=== PATIENT | female | born 1955 | race Caucasian/White ===

== ENCOUNTER 2020-01-01 11:59 | Emergency (ER) | payer MEDICARE, SELFPAY ==
[2020-01-01 12:06] VITALS: BP 180/122; PULSE 85; RESP 26; TEMP 36.7; O2SAT 96; BMI 43.2
[2020-01-01 12:28] VITALS: O2SAT 94
--- NOTE | 2020-01-01 12:30 | ECG_ITS ---
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: : 1955 Requested By: Lakesha Regan Order Number: [id number] Shan MD: ERROL DOZIER Measurements Intervals [place] Rate: 72 P: 55 IA: 191 QRS: 52 QRSD: 81 T: -44 QT: 382 QTc: 419 Interpretive Statements SINUS RHYTHM WITH SINUS ARRHYTHMIA LOW QRS VOLTAGE IN PRECORDIAL LEADS [QRS DEFLECTION < 1.0 mV IN CHEST LEADS] SEPTAL MYOCARDIAL INFARCTION , OF INDETERMINATE AGE [40+ ms Q WAVE IN V1/V2] MODERATE T-WAVE ABNORMALITY, CONSIDER LATERAL ISCHEMIA [-0.1+ mV T WAVE IN I/aVL/V5/V6] MODERATE T-WAVE ABNORMALITY, CONSIDER INFERIOR ISCHEMIA [-0.1+ mV T WAVE IN II/aVF] No previous ECG available for comparison Electronically Signed On 01-01-2020 21:04:10 CDT by ERROL DOZIER [id number]
--- NOTE | 2020-01-01 12:30 | W.ED.COVID ---
HPI - COVID General: Chief Complaint: COVID symptoms Stated Complaint: covid Symtoms Time Seen by Provider: 01/01/20 12:15 Triage information: Has fever, cough or shortness of breath. Exposure to COVID + person last 14 days History of Present Illness: HPI Narrative: 64-year-old female patient presents to the emergency department with Covid symptoms. Reports illness symptoms x4 to 5 days, reports experienced nausea vomiting, productive cough, low-grade temperature (99.8); states has cared for her father who tested positive for Covid 3 weeks ago. She reports her father is currently on the ventilator at [facility] in [place]; states not sure if her shortness of breath is related to her anxiety due to her ill father or if she is experiencing something different. She has history of hypertension, hypothyroidism. Primary care provider is Dr. Mcdonald. States able to eat and drink this morning, has not experienced vomiting today. Remains slightly nauseated. MD complaint: has COVID symptoms Prior covid testing: no COVID 19 common symptoms: positive fever(s), chills, cough, productive cough, dyspnea, fatigue, body aches and nasal congestion; negative non-productive cough, headache(s), throat pain, nausea or vomiting COVID 19 other sytmptoms: negative chest pain Onset (ago): day(s) (4-5) Severity: moderate Pertinent comorbid conditions: hypertension Treatment prior to arrival: none COVID Results: SARS-CoV-2 Antigen (Rapid) Negative (Negative) 01/01/20 13:07 01/01/20 Review of Systems General: Reports: 10 or more systems reviewed and unremarkable except in HPI and below Const: Reports: fever(s), chills, body aches, change in appetite, fatigue and malaise Eyes: Denies: blurry vision or eye redness ENMT: Reports: nasal discharge, nasal congestion and post nasal drip; Denies: throat pain, uvular edema, oral sores, dental pain or disequilibrium Card: Reports: dyspnea on exertion; Denies: chest pain, palpitations, irregular heart rhythm, swelling of feet/ankles or orthopnea Resp: Reports: dyspnea, productive cough and chest congestion; Denies: non-productive cough, wheezing or hemoptysis GI: Denies: abdominal pain, nausea or vomiting : Denies: difficulty voiding or dysuria Musc: Denies: neck pain, back pain, joint pain or joint warmth Skin/Breast: Denies: rash or pruritus Neuro: Denies: headache(s), weakness in extremities or behavioral changes Psych: Denies: anxiety or depression Mike/Lymph: Denies: easy bruising PFSH ED PFSH: Social History Smoking and tobacco status: never smoked Alcohol intake: never Physical Exam Const: COMMON NORMALS: no acute distress, patient oriented x3, healthy appearing and alert GENERAL APPEARANCE: cooperative, comfortable and well hydrated HENMT: COMMON NORMALS: normocephalic, Normal external nose present and moist oral mucous membranes HEAD & SCALP: normocephalic NOSE: Normal external nose present THROAT: no uvular edema Eye: COMMON NORMALS: Equal, round and reactive pupils present and EOMs intact bilaterally GENERAL EYE: appearance normal, both eyes and all related structures PUPIL: Yes Equal, round and reactive pupils present Neck/C-Spine: COMMON NORMALS: full ROM and no lymphadenopathy GENERAL: Yes normal visual inspection and Yes trachea midline CERVICAL SPINE: Yes cervical ROM normal Lymph: LYMPHATIC: no lymphadenopathy noted Chest: COMMONS NORMALS: normal inspection of the chest Resp: COMMON NORMALS: normal respiratory effort, No use of accessory muscles and clear to auscultation bilaterally EFFORT & INSPECTION: Yes able to speak in complete sentences and No paradoxical thoraco-abdominal movements AUSCULTATION: clear to auscultation bilaterally and diminished lung sounds bilateral in the lower lung hester Cardio: COMMON NORMALS: regular rhythm, S1 normal heart sound present, S2 normal heart sound present and Peripheral pulses 2+ throughout RHYTHM: regular rhythm HEART SOUNDS: S1 normal heart sound present and S2 normal heart sound present PERIPHERAL PULSES: Peripheral pulses 2+ throughout GI: COMMON NORMALS: Soft to palpation and non-tender INSPECTION: Yes normal to inspection PALPATION: Yes Soft to palpation : COMMON NORMALS: Yes no CVA tenderness BLADDER/KIDNEY EXAM: Yes no CVA tenderness Back/Pelvis: COMMON NORMALS: no CVA tenderness and thoracic and lumbar spine normal to inspection Extremity: COMMON NORMALS: normal to inspection and capillary refill normal Neuro: COMMON NORMALS: patient oriented x3 and no focal motor deficits SENSORIUM/ORIENTATION: Yes alert Psych: COMMON NORMALS: mental status grossly normal, Normal thought process present, cooperative, normal affect, speech normal, activity/motor behavior normal, denies hallucinations, denies homicidal ideation and denies suicidal ideation ATTITUDE: Yes calm ACTIVITY/MOTOR BEHAVIOR: Yes appropriate eye contact SPEECH: Yes normal speech MOOD & AFFECT: Yes Other affect and mood findings present (tearful during exam ) THOUGHT PROCESS: Normal thought process present THOUGHT CONTENT: Yes Normal thought content present ATTENTION/CONCENTRATION: Yes attention grossly intact INSIGHT: Good insight present (Psych) JUDGEMENT: Good judgement present (Psych) Skin: COMMON NORMALS: no rashes or lesions noted and turgor normal GENERAL SKIN EXAM: no rashes or lesions noted and turgor normal Course ED course: 64-year-old female patient presents to the emergency department with Covid symptoms. Her father recently diagnosed with Covid and has been his primary gang boss for 3 weeks. She presents with Covid symptoms x5 days. Initial Covid rapid screen negative; CT scan revealed no evidence of pulmonary emboli but appreciation of small round groundglass opacities with peripheral predominance suggestive of Covid resulted. D-dimer slightly elevated, lactic acid 1.6, ferritin 64, serial 2-hour troponin with delta -1. O2 saturation during the ED continuous monitoring. Oxygen saturation dropped to 87%, she was placed on 2 L nasal cannula oxygen saturation rebounding to 96%. Patient reports she is feeling hungry and wishes to go home. States she does not want to stay in the hospital. She will be sent home with portable oxygen monitoring device. Agrees to return to the emergency department if she develops increased weakness, vomiting with nausea despite use of Zofran, increased shortness of breath or other concerning symptoms. I discussed Covid process with her as well as serology, radiology results completed here in the ED. Questions were answered, expectations discussed. She agrees to follow-up with her primary care in 2 to 3 days for close follow-up. Vital Signs: Vital signs: Vital Signs Temperature 98.1 F 01/01/20 12:06 Pulse Rate 83 01/01/20 16:44 Respiratory Rate 18 01/01/20 16:44 Blood Pressure 169/83 01/01/20 16:44 Pulse Oximetry 95 01/01/20 16:44 MDM - COVID Lab Data Result diagrams: 01/01/20 12:52 01/01/20 12:52 Labs: Lab Results 01/01/20 01/01/20 01/01/20 Range/Units 12:52 12:52 12:52 WBC 6.0 (4.0-10.0) 10^3/uL RBC 5.35 H (4.1-5.3) 10^6/uL Hgb 12.2 (11.5-15.3) g/dL Hct 39.9 (37.0-47.0) % MCV 74.6 L (81-99) fL MCH 22.8 L (28.0-34.0) pg MCHC 30.6 (30.0-36.0) g/dL RDW 15.0 (12.1-15.1) % Plt Count 233 (130-400) 10^3/cmm MPV 10.8 H (7.4-10.4) fL Neut % (Auto) 76.9 % Lymph % (Auto) 12.1 % Gregg % (Auto) 8.8 % Eos % (Auto) 1.3 % Baso % (Auto) 0.2 % Neut # (Auto) 4.62 (1.8-7.7) 10^3/uL Lymph # (Auto) 0.7 L (0.8-4.8) 10^3/uL Gregg # (Auto) 0.5 (0.2-0.9) 10^3/uL Eos # (Auto) 0.1 (0.0-0.8) 10^3/uL Baso # (Auto) 0.0 (0.0-0.1) 10^3/uL Nucleated RBC % (auto) 0 % Nucleated RBCs # 0.0 /100WBC D-Dimer 0.91 H (0-0.59) ug/mIFEU Sodium 134 L (136-145) mmol/L Potassium 3.3 L (3.5-5.1) mmol/L Chloride 94 L (98-107) mmol/L Carbon Dioxide 23 (22-29) mmol/L Anion Gap 20.3 H (5-19) BUN 11 (8-23) mg/dL Creatinine 1.0 H (0.5-0.9) mg/dL GFR Calculation 56.0 L (90-130) mL/min Glucose 136 H (65-115) mg/dL Calculated Osmolality 279 L (285-295) mOsm/kg Lactate (0.5-2.2) mmol/L Calcium 8.5 (8.5-10.5) mg/dL Ferritin 64 (15-150) ng/mL Total Bilirubin 0.4 (0.15-1.2) mg/dL AST 18 (0-32) U/L ALT 10 (0-33) U/L Alkaline Phosphatase 97 (35-105) IU/L Troponin T Baseline (0-10) ng/L Troponin T 120 Minute (0-10) ng/L Delta Troponin T (0-10) ABS# Total Protein 7.3 (6.6-8.7) g/dL Albumin 4.0 (3.5-5.2) g/dL Globulin 3.3 (1.3-4.6) g/dL Influenza Type A Ag (Negative) Influenza Type B Ag (Negative) SARS-CoV-2 Ag (Rapid) (Negative) 01/01/20 01/01/20 01/01/20 Range/Units 12:52 12:52 13:07 WBC (4.0-10.0) 10^3/uL RBC (4.1-5.3) 10^6/uL Hgb (11.5-15.3) g/dL Hct (37.0-47.0) % MCV (81-99) fL MCH (28.0-34.0) pg MCHC (30.0-36.0) g/dL RDW (12.1-15.1) % Plt Count (130-400) 10^3/cmm MPV (7.4-10.4) fL Neut % (Auto) % Lymph % (Auto) % Gregg % (Auto) % Eos % (Auto) % Baso % (Auto) % Neut # (Auto) (1.8-7.7) 10^3/uL Lymph # (Auto) (0.8-4.8) 10^3/uL Gregg # (Auto) (0.2-0.9) 10^3/uL Eos # (Auto) (0.0-0.8) 10^3/uL Baso # (Auto) (0.0-0.1) 10^3/uL Nucleated RBC % (auto) % Nucleated RBCs # /100WBC D-Dimer (0-0.59) ug/mIFEU Sodium (136-145) mmol/L Potassium (3.5-5.1) mmol/L Chloride (98-107) mmol/L Carbon Dioxide (22-29) mmol/L Anion Gap (5-19) BUN (8-23) mg/dL Creatinine (0.5-0.9) mg/dL GFR Calculation (90-130) mL/min Glucose (65-115) mg/dL Calculated Osmolality (285-295) mOsm/kg Lactate (0.5-2.2) mmol/L Calcium (8.5-10.5) mg/dL Ferritin (15-150) ng/mL Total Bilirubin (0.15-1.2) mg/dL AST (0-32) U/L ALT (0-33) U/L Alkaline Phosphatase (35-105) IU/L Troponin T Baseline 7 (0-10) ng/L Troponin T 120 Minute (0-10) ng/L Delta Troponin T (0-10) ABS# Total Protein (6.6-8.7) g/dL Albumin (3.5-5.2) g/dL Globulin (1.3-4.6) g/dL Influenza Type A Ag Negative (Negative) Influenza Type B Ag Negative (Negative) SARS-CoV-2 Ag (Rapid) Negative (Negative) 01/01/20 01/01/20 Range/Units 14:00 14:00 WBC (4.0-10.0) 10^3/uL RBC (4.1-5.3) 10^6/uL Hgb (11.5-15.3) g/dL Hct (37.0-47.0) % MCV (81-99) fL MCH (28.0-34.0) pg MCHC (30.0-36.0) g/dL RDW (12.1-15.1) % Plt Count (130-400) 10^3/cmm MPV (7.4-10.4) fL Neut % (Auto) % Lymph % (Auto) % Gregg % (Auto) % Eos % (Auto) % Baso % (Auto) % Neut # (Auto) (1.8-7.7) 10^3/uL Lymph # (Auto) (0.8-4.8) 10^3/uL Gregg # (Auto) (0.2-0.9) 10^3/uL Eos # (Auto) (0.0-0.8) 10^3/uL Baso # (Auto) (0.0-0.1) 10^3/uL Nucleated RBC % (auto) % Nucleated RBCs # /100WBC D-Dimer (0-0.59) ug/mIFEU Sodium (136-145) mmol/L Potassium (3.5-5.1) mmol/L Chloride (98-107) mmol/L Carbon Dioxide (22-29) mmol/L Anion Gap (5-19) BUN (8-23) mg/dL Creatinine (0.5-0.9) mg/dL GFR Calculation (90-130) mL/min Glucose (65-115) mg/dL Calculated Osmolality (285-295) mOsm/kg Lactate 1.6 (0.5-2.2) mmol/L Calcium (8.5-10.5) mg/dL Ferritin (15-150) ng/mL Total Bilirubin (0.15-1.2) mg/dL AST (0-32) U/L ALT (0-33) U/L Alkaline Phosphatase (35-105) IU/L Troponin T Baseline (0-10) ng/L Troponin T 120 Minute 6.00 (0-10) ng/L Delta Troponin T -1.00 L (0-10) ABS# Total Protein (6.6-8.7) g/dL Albumin (3.5-5.2) g/dL Globulin (1.3-4.6) g/dL Influenza Type A Ag (Negative) Influenza Type B Ag (Negative) SARS-CoV-2 Ag (Rapid) (Negative) COVID Results: SARS-CoV-2 Antigen (Rapid) Negative (Negative) 01/01/20 13:07 01/01/20 Imaging Data CXR: Radiologist's impression: [address] [address] XRay Report Signed Patient: Sophie Mckeon #: [id number] : 7Acct#:[id number] Age/Sex: 64 / FADM Date: 01/01/20 Loc: ERRoom/Bed: Attending Dr: Ordering Provider/Ordering MD: Lakesha Clark Date of Service: 01/01/20 Procedure(s): XR chest 1V portable [id number] Accession Number(s): [id number] Report Number: [id number] PROCEDURE INFORMATION: Exam: XR Chest, 1 View Exam date and time: 01/01/2020 12:56 PM Age: 64 years old Clinical indication: Shortness of breath; Patient HX: Covid precautions; Additional info: Syncope TECHNIQUE: Imaging protocol: XR of the chest Views: 1 view. COMPARISON: No relevant prior studies available. FINDINGS: Lungs: Unremarkable. No consolidation. Pleural space: Unremarkable. No pleural effusion. No pneumothorax. Heart/Mediastinum: Unremarkable. No cardiomegaly. Bones/joints: Unremarkable. XR/XR chest 1V portable [id number] IMPRESSION: No acute findings. Dictated By:Hung Ortega Signed By:Alicia Ortega Date/Time:01/01/201403 DD/ 02 CT Chest: Radiologist's impression: [place] [address] CT Scan Report Signed Patient: Sophie Mckeon Unit #: [id number] : 1955 Age/Sex: 64 / F ADM Date: 01/01/20 Loc: ER Room/Bed: Attending Dr: Ordering Provider/Ordering MD: Lakesha Clark Date of Service: 01/01/20 Procedure(s): CT angio chest PE protcl [id number] Accession Number(s): [id number] Report Number: [id number] PROCEDURE INFORMATION: Exam: CT Angiography Chest With Contrast Exam date and time: 01/01/2020 2:22 PM Age: 64 years old Clinical indication: Abnormal findings; Abnormal diagnostic tests; Elevated d-dimer; Additional info: ? Covid - elevated d-dimer TECHNIQUE: Imaging protocol: Computed tomographic angiography of the chest with intravenous contrast. 3D rendering (Not supervised by radiologist): MIP and/or 3D reconstructed images were created by the technologist. Radiation optimization: All CT scans at this facility use at least one of these dose optimization techniques: automated exposure control; mA and/or kV adjustment per patient size (includes targeted exams where dose is matched to clinical indication); or iterative reconstruction. Contrast material: OMNI 350; Contrast volume: 80 ml; Contrast route: INTRAVENOUS (IV); COMPARISON: CR XR chest 1V portable [id number] 01/01/2020 12:41 PM RADIATION DOSE METRICS: Total DLP (mGy-cm): 554.78 FINDINGS: Pulmonary arteries: There is no evidence of pulmonary artery emboli. Aorta: There is no evidence of thoracic aortic aneurysm or dissection. Lungs: There are multifocal small round ground-glass opacities within all segments. There is peripheral predominance. Pleural space: Unremarkable. No pneumothorax. No pleural effusion. Heart: Unremarkable. No cardiomegaly. No pericardial effusion. Mediastinal space: There is a small hiatal hernia Lymph nodes: Unremarkable. No enlarged lymph nodes. Bones/joints: There are degenerative changes of the spine. Soft tis. sues: Unremarkable. CT/CT angio chest PE protcl [id number] IMPRESSION: 1. No evidence of pulmonary artery emboli. 2. Multifocal small round ground-glass opacities with peripheral predominance.Commonly reported imaging features of COVID-19 pneumonia are present. Other processes such as influenza pneumonia and organizing pneumonia, as can be seen with drug toxicity and connective tissue disease, can cause a similar imaging pattern. (Reference: Luis Fernando) REFERENCES: Luis Fernando S, et al., Radiological Society of [place] Expert Consensus Statement on Reporting Chest CT Findings Related to COVID-19. Endorsed by the Society of Thoracic Radiology, the [place] [employer], and RSNA. Published May 28, 2019. Radiation Dose CTDIVOL = (mGy): DLP = 554.78 (mGy-cm) Dictated By: González Tracey MD Signed By: González Tracey MD Signed Date/Time: 01/01/201454 DD/ 53 EKG Data EKG 1: EKG interpretation date: 01/01/20 EKG interpretation time: 13:02 Computer generated interpretation: Sinus rhythm with sinus arrhythmia, septal myocardial infarction of indeterminate age EKG 2: EKG interpretation date: 01/01/20 EKG interpretation time: 14:50 Prior EKG tracings: available for review Computer generated interpretation: Sinus rhythm with sinus arrhythmia, possible right ventricular conduction delay, septal myocardial infarction, probably old, abnormal ECG Discharge Plan Discharge Patient Disposition: Home Clinical Impression: COVID-19, Viral bronchitis, Anxiety Condition: Stable Prescriptions: New dexamethasone 6 mg tablet 6 mg PO DAILY Qty: 10 RF: 0 Adult Aspirin Regimen 81 mg tablet,delayed release (DR/EC) 81 mg PO DAILY Qty: 10 RF: 0 Pepcid 20 mg tablet 20 mg PO DAILY Qty: 10 RF: 0 Ventolin HFA 90 mcg/actuation HFA aerosol inhaler 2 puff INHALATION Q4H PRN (Reason: shortness of breath or wheezing) Qty: 18 RF: 0 Zofran 4 mg tablet 4 mg PO 6XD PRN (Reason: nausea and vomiting) 4 Days Qty: 10 RF: 0 No Action levothyroxine 137 mcg capsule 137 mcg PO DAILY RF: 0 sulfamethoxazole-trimethoprim [Bactrim DS] 800-160 mg tablet 1 tab PO BID Qty: 14 RF: 0 metoprolol tartrate 100 mg tablet 100 mg PO DAILY 90 Days Qty: 90 RF: 3 Discharge Orders: Discharge Order (Routine); Ordered 01/01/20 Ordered By: Lakesha Clark Other Ambulatory Orders: DME: Oxygen (Order) Location: None Selected Ordered By: Lakesha Clark Referrals: Breonna Mcdonald MD [Primary Care Provider] - Discharge Diet: Usual diet Discharge Activity: Limit activity as instructed Patient Instructions: Stress (ED), Acute Bronchitis (ED), Viral Syndrome (ED) Activity Restrictions/Additional Instructions: Return to the emergency department if you develop inability to catch your breath, coughing up blood, oxygen level drops below 90%, lightheadedness or feeling of passing out Return to the emergency department if you develop chest pain You will need to rest for the next several days. Follow-up with your primary care provider in 2 to 3 days to monitor your oxygen level. Push fluids, may take Tylenol as needed for pain Take Pepcid aspirin dexamethasone daily for 10 days Albuterol has been prescribed to help with shortness of breath and cough symptoms, albuterol can make you feel jittery, may utilize 1 puff if side effects are bothersome Wear oxygen at night, may take oxygen off during the day but ensure you are monitoring your oxygen level in the oxygen saturations stays above 93%. Discharge Date/Time: 01/01/20 16:48 Coding Level of Care Code ED Baggage Agent Supervisor for Chg Fwd Exam Comprehensive
[2020-01-01 12:58] VITALS: RESP 20; O2SAT 94
[2020-01-01 13:03] LABS: Basophils % 0.2 %; Eosinophils # 0.1 10^3/uL (0.0-0.8); Eosinophils % 1.3 %; Hematocrit 39.9 % (37.0-47.0); Hemoglobin 12.2 g/dL (11.5-15.3); Lymphocytes # 0.7 10^3/uL (0.8-4.8); Lymphocytes % 12.1 %; Mean Corpuscular HGB Conc 30.6 g/dL (30.0-36.0); Mean Corpuscular Hemoglobin 22.8 pg (28.0-34.0); Mean Corpuscular Volume 74.6 fL (81-99); Mean Platelet Volume 10.8 fL (7.4-10.4); Monocytes # 0.5 10^3/uL (0.2-0.9); Monocytes % 8.8 %; Neutrophils # 4.62 10^3/uL (1.8-7.7); Neutrophils % 76.9 %; Nucleated Red Blood Cells % 0 %; Platelet Count 233 10^3/cmm (130-400); Red Blood Count 5.35 10^6/uL (4.1-5.3)
[2020-01-01 13:16] LABS: D Dimer 0.91 ug/mIFEU (0-0.59)
[2020-01-01 13:22] LABS: Alanine Aminotransferase 10 U/L (0-33); Alkaline Phosphatase 97 IU/L (35-105); Anion Gap 20.3 (5-19); Aspartate Amino Transferase 18 U/L (0-32); Blood Urea Nitrogen 11 mg/dL (8-23); Calcium 8.5 mg/dL (8.5-10.5); Carbon Dioxide 23 mmol/L (22-29); Chloride 94 mmol/L (98-107); Globulin 3.3 g/dL (1.3-4.6); Glucose 136 mg/dL (65-115); Osmolality Calculated 279 mOsm/kg (285-295); Potassium 3.3 mmol/L (3.5-5.1); Sodium 134 mmol/L (136-145); Total Bilirubin 0.4 mg/dL (0.15-1.2); Total Protein 7.3 g/dL (6.6-8.7)
[2020-01-01 13:23] LABS: Troponin(5th) Baseline 7 ng/L (0-10)
[2020-01-01 13:31] LABS: Influenza A by IFA Negative (Negative); Influenza B by IFA Negative (Negative)
--- NOTE | 2020-01-01 13:47 | CTR_ITS ---
PROCEDURE INFORMATION: Exam: CT Angiography Chest With Contrast Exam date and time: 01/01/2020 2:22 PM Age: 64 years old Clinical indication: Abnormal findings; Abnormal diagnostic tests; Elevated d-dimer; Additional info: ? Covid - elevated d-dimer TECHNIQUE: Imaging protocol: Computed tomographic angiography of the chest with intravenous contrast. 3D rendering (Not supervised by radiologist): MIP and/or 3D reconstructed images were created by the technologist. Radiation optimization: All CT scans at this facility use at least one of these dose optimization techniques: automated exposure control; mA and/or kV adjustment per patient size (includes targeted exams where dose is matched to clinical indication); or iterative reconstruction. Contrast material: OMNI 350; Contrast volume: 80 ml; Contrast route: INTRAVENOUS (IV); COMPARISON: CR XR chest 1V portable [id number] 01/01/2020 12:41 PM RADIATION DOSE METRICS: Total DLP (mGy-cm): 554.78 FINDINGS: Pulmonary arteries: There is no evidence of pulmonary artery emboli. Aorta: There is no evidence of thoracic aortic aneurysm or dissection. Lungs: There are multifocal small round ground-glass opacities within all segments. There is peripheral predominance. Pleural space: Unremarkable. No pneumothorax. No pleural effusion. Heart: Unremarkable. No cardiomegaly. No pericardial effusion. Mediastinal space: There is a small hiatal hernia Lymph nodes: Unremarkable. No enlarged lymph nodes. Bones/joints: There are degenerative changes of the spine. Soft tis. sues: Unremarkable. CT/CT angio chest PE protcl [id number] IMPRESSION: 1. No evidence of pulmonary artery emboli. 2. Multifocal small round ground-glass opacities with peripheral predominance.Commonly reported imaging features of COVID-19 pneumonia are present. Other processes such as influenza pneumonia and organizing pneumonia, as can be seen with drug toxicity and connective tissue disease, can cause a similar imaging pattern. (Reference: Luis Fernando) REFERENCES: Luis Fernando Rhodes, et al., Radiological Society of [place] Expert Consensus Statement on Reporting Chest CT Findings Related to COVID-19. Endorsed by the Society of Thoracic Radiology, the [place] [employer], and RSNA. Published May 28, 2019. Radiation Dose CTDIVOL = (mGy): DLP = 554.78 (mGy-cm)
[2020-01-01 13:49] LABS: SARS Covid-2 Antigen Negative (Negative)
[2020-01-01 13:52] VITALS: BP 134/89
[2020-01-01] MEDS: LORazepam 0.5 mg Tablet 0.25 MG PO (13:57)
[2020-01-01] MEDS: ondansetron 2 mg/ML SDV 2 mL 4 MG IVP (13:57)
[2020-01-01 14:27] LABS: Lactate (Lactic Acid level) 1.6 mmol/L (0.5-2.2)
--- NOTE | 2020-01-01 14:30 | ECG_ITS ---
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: : 1955 Requested By: Lakesha Regan Order Number: [id number] Reading MD: ERROL DOZIER Measurements Intervals [place] Rate: 72 P: 8 ND: 130 QRS: 45 QRSD: 87 T: -58 QT: 346 QTc: 381 Interpretive Statements SINUS RHYTHM WITH SINUS ARRHYTHMIA LOW QRS VOLTAGE IN PRECORDIAL LEADS [QRS DEFLECTION < 1.0 mV IN CHEST LEADS] POSSIBLE RIGHT VENTRICULAR CONDUCTION DELAY [RSR (QR) IN V1/V2] SEPTAL MYOCARDIAL INFARCTION , PROBABLY OLD [40+ ms Q WAVE IN V1/V2] Compared to ECG 01/01/2020 13:01:47 T-wave abnormality no longer present Possible ischemia no longer present Myocardial infarct finding still present Electronically Signed On 01-01-2020 21:05:43 CDT by ERROL DOZIER [email or web address]/[id number] f
[2020-01-01 14:31] LABS: Ferritin 64 ng/mL (15-150)
[2020-01-01] MEDS: iohexol 350 mg/mL 100 mL Btl IV (14:46)
[2020-01-01 15:51] VITALS: O2SAT 88; O2SAT 96
--- NOTE | 2020-01-01 16:03 | DCPLANNER ---
manager information was asked to arrange for home O2 for patient. manager information faxed order to [facility], for oxygen. manager information filled out Patient Choice Letter, patient choose [facility] for her oxygen needs. manager information signed the Patient Choice letter for patient, due to patient having covid.
[2020-01-01 16:44] VITALS: BP 169/83; PULSE 83; RESP 18; O2SAT 95
--- NOTE | 2020-01-06 11:55 | DCPLANNER ---
late entry - on 01.02.20 continuous pillowcase cutter called patient to speak with patient about follow up appointment with primary care, continuous pillowcase cutter called [phone] left voicemail for patient to return transplant case manager phone call.
== END 2020-01-01 16:48 | disposition home or self-care (01) ==
PROVIDERS: Emergency Provider Nurse Practitioner Family; PCP Family Medicine
DX: U07.1 COVID-19 (principal); J40 Bronchitis, not specified as acute or chronic; F41.9 Anxiety disorder, unspecified; R11.10 Vomiting, unspecified
CPT/HCPCS: 12345; 36415; 71045; 71275; 80053; 82728; 83605; 84484; 85025; 85378; 87426; 87804; 93005; 96374; 96375; 99284; J2405; Q9967

== ENCOUNTER → 2021-01-12 11:38 | Outpatient (BNVA) | payer MEDICARE, SELFPAY | PROVIDERS: PCP Family Medicine; Visit Provider Family Medicine | DX: Z00.00 Encounter for general adult medical examination without abnormal findings (principal); E03.8 Other specified hypothyroidism | CPT/HCPCS: 84443 ==

== ENCOUNTER → 2022-02-01 09:58 | Outpatient (BNVA) | payer MEDICARE, SELFPAY | PROVIDERS: PCP Family Medicine; Visit Provider Family Medicine | DX: I10 Essential (primary) hypertension (principal); E03.8 Other specified hypothyroidism; U07.1 COVID-19 | CPT/HCPCS: 80053; 84443; 85025 ==

== ENCOUNTER 2023-11-06 10:57 | Outpatient (CLI) | payer MEDICARE, SELFPAY ==
--- NOTE | 2023-11-06 11:00 | XRR_ITS ---
PROCEDURE INFORMATION: Exam: XR Lumbosacral Spine Exam date and time: 11/06/2023 11:05 AM Age: 68 years old Clinical indication: Low back pain; Patient HX: Mid back pain that radiates down to lower back x 3 weeks, limited rom, intermittent bilat shoulder pain; Additional info: Increasing pain t12/l1 region TECHNIQUE: Imaging protocol: Radiologic exam of the lumbosacral spine. Views: 2 or 3 views. COMPARISON: CR XR thoracic spine 2V [id number] 11/06/2023 11:05 AM FINDINGS: Bones/joints: Very mild superior endplate compression of T12 and L1. Vertebral body heights are otherwise preserved. Mild lumbar facet arthrosis. Soft tissues: Unremarkable. XR/XR lumbar spine 2-3V* [id number] IMPRESSION: Very mild superior endplate compression of T12 and L1. Recommend correlation focal tenderness.
--- NOTE | 2023-11-06 11:00 | XRR_ITS ---
PROCEDURE INFORMATION: Exam: XR Thoracic Spine Exam date and time: 11/06/2023 11:05 AM Age: 68 years old Clinical indication: Pain in thoracic spine; Patient HX: Mid back pain that radiates down to lower back x 3 weeks, limited rom, intermittent bilat shoulder pain; Additional info: Increasing pain t12/l1 region TECHNIQUE: Imaging protocol: Radiologic exam of the thoracic spine. Views: 3 views. COMPARISON: CR XR lumbar spine 2-3V* [id number] 11/06/2023 11:05 AM FINDINGS: Bones/joints: Slightly exaggerated kyphosis at the thoracolumbar junction, similar to prior. Vertebral body heights are preserved. No acute fracture. Multilevel degenerative disc disease. Soft tissues: Unremarkable. XR/XR thoracic spine 2V [id number] IMPRESSION: No acute findings.
== END 2023-11-06 10:58 | disposition home or self-care (01) ==
LOC: RAD 10:58
PROVIDERS: PCP Family Medicine; Visit Provider Family Medicine
DX: S22.000A Wedge compression fracture of unspecified thoracic vertebra, initial encounter for closed fracture (principal); E03.8 Other specified hypothyroidism; I10 Essential (primary) hypertension; U07.1 COVID-19; X58.XXXA Exposure to other specified factors, initial encounter
CPT/HCPCS: 72070; 72100; 80053; 84443; 85025

== ENCOUNTER 2024-11-08 15:10 | Emergency (ER) | payer MEDICARE, SELFPAY ==
[2024-11-08 15:13] VITALS: BP 162/97; PULSE 104; RESP 17; TEMP 36.8; O2SAT 96; BMI 43.7
[2024-11-08 16:34] LABS: Hematocrit 42.7 % (36-47); Hemoglobin 13.90 g/dL (11.27-16.99); Mean Corpuscular HGB Conc 32.6 g/dL (30-55); Mean Corpuscular Hemoglobin 25.8 pg (27-33); Mean Corpuscular Volume 79.4 fl (85-98); Nucleated Red Blood Cells % 0 %; Platelet Count 322 10^3/cmm (157-399); Red Blood Count 5.38 10^6/uL (3.85-5.65); White Blood Count 11.96 10^3/uL (3.29-11.43)
[2024-11-08 16:50] LABS: Alanine Aminotransferase 9 U/L (0-33); Albumin Level 4.1 g/dL (3.5-5.2); Alkaline Phosphatase 114 U/L (35-105); Anion Gap 16.1 (5-19); Aspartate Amino Transferase 12 U/L (0-32); Blood Urea Nitrogen 15 mg/dL (8-23); Calcium 9.6 mg/dL (8.5-10.5); Carbon Dioxide 27 mmol/L (22-29); Chloride 96 mmol/L (98-107); Creatinine Clr Calc Pharmacy 87.0379; Globulin 4.4 g/dL (1.3-4.6); Glucose 106 mg/dL (65-115); Lipase 272 U/L (13-60); Osmolality Calculated 283 mOsm/kg (285-295); Potassium 3.1 mmol/L (3.5-5.1); Sodium 136 mmol/L (136-145); Total Protein 8.5 g/dL (6.6-8.7)
[2024-11-08 16:51] LABS: Glucose Urine UA Negative (Normal); Nitrate Urine Negative (Negative); Specific Gravity, Urine 1.024 (1.005-1.030)
--- NOTE | 2024-11-08 18:06 | CTR_ITS ---
PROCEDURE INFORMATION: Exam: CT Abdomen And Pelvis With Contrast Exam date and time: 11/08/2024 6:19 PM Age: 69 years old Clinical indication: Pain and abnormal findings; Abnormal lab test; Elevated lipase; Abdominal pain; Epigastric pain with elevated lipase; Additional info: Epigastric pain/elevated lipase TECHNIQUE: Imaging protocol: Computed tomography of the abdomen and pelvis with contrast. 245 image(s) are submitted. Radiation optimization: All CT scans at this facility use at least one of these dose optimization techniques: automated exposure control; mA and/or kV adjustment per patient size (includes targeted exams where dose is matched to clinical indication); or iterative reconstruction. Contrast material: OMNI 350; Contrast volume: 100 ml; Contrast route: INTRAVENOUS (IV); COMPARISON: CR XR lumbar spine 2-3V* [id number] 11/06/2023 11:05 AM RADIATION DOSE METRICS: Total DLP (mGy-cm): 1035.73 FINDINGS: Liver: Superior right lobe of the liver posterolaterally adjacent to the capsule, there is 2.3 cm region of subtle hypo enhancement seen on image number 12/3. Follow-up outpatient MRI study of the liver without and with contrast enhancement is recommended to evaluate for possible underlying pathology or tumor. Gallbladder and biliary ducts: See Pancreas finding. Pancreas: Inflammatory stranding adjacent to the pancreatic tail and distal pancreatic body region is noted, suggesting mild pancreatitis. No evidence of pancreatic pseudocyst or phlegmon. No pancreatic mass or pancreatic ductal distension. Multiple borderline enlarged lymph nodes adjacent to the pancreatic head and uncinate process, may represent reactive lymphadenopathy. No biliary tree distension. Spleen: Normal. No splenomegaly. Adrenal glands: Normal. No mass. Kidneys and ureters: No urinary tract obstruction or calculus. No evidence of small bowel obstruction. Small fat containing umbilical hernia. Colonic diverticulosis without diverticulitis. No adnexal mass or urinary tract obstruction or calculus. Stomach and bowel: See Kidneys and ureters finding. Appendix: Normal appendix. Multiple borderline enlarged right lower quadrant mesenteric lymph nodes with unclear clinical significance. Degenerative changes of the thoracic and lumbar spine. Intraperitoneal space: Unremarkable. No free air. No significant fluid collection. Vasculature: Unremarkable. No abdominal aortic aneurysm. Lymph nodes: See Pancreas finding. Urinary bladder: Unremarkable as visualized. Reproductive: See Kidneys and ureters finding. Bones/joints: See Appendix finding. Soft tissues: See Kidneys and ureters finding. CT/CT abdomen pelvis w con* [id number] IMPRESSION: 1. Inflammatory stranding adjacent to the pancreatic tail and distal pancreatic body region is noted, suggesting mild pancreatitis. No evidence of pancreatic pseudocyst or phlegmon. No pancreatic mass or pancreatic ductal distension. Multiple borderline enlarged lymph nodes adjacent to the pancreatic head and uncinate process, may represent reactive lymphadenopathy. No biliary tree distension. 2. Superior right lobe of the liver posterolaterally adjacent to the capsule, there is 2.3 cm region of subtle hypo enhancement seen on image number 12/3. Follow-up outpatient MRI study of the liver without and with contrast enhancement is recommended to evaluate for possible underlying pathology or tumor. 3. No urinary tract obstruction or calculus. No evidence of small bowel obstruction. Small fat containing umbilical hernia. Colonic diverticulosis without diverticulitis. No adnexal mass or urinary tract obstruction or calculus. 4. Normal appendix. Multiple borderline enlarged right lower quadrant mesenteric lymph nodes with unclear clinical significance. Degenerative changes of the thoracic and lumbar spine.
[2024-11-08 18:19] VITALS: BP 174/88; PULSE 101; O2SAT 97
[2024-11-08] MEDS: iohexol 350 mg/mL 500 mL Btl (per mL) IV (18:21)
--- NOTE | 2024-11-08 18:53 | W.ED.ABDPA2 ---
HPI - Abdominal Pain General: Chief Complaint: Abdominal Pain Stated Complaint: ABD Pain N/V Time Seen by Provider: 11/08/24 15:46 Source: patient Mode of arrival: ambulatory Limitations: no limitations History of Present Illness: Patient is a 61-year-old female who reports the emergency department complaining of upper abdominal pain for the past 4 to 5 days. States it is worse when she is seated or after she eats something. Denies any pertinent abdominal history, no previous abdominal surgeries. States that it radiates across her abdomen bilaterally, does not drink alcohol. Does not report any radiation directly into the back. She is reporting associated nausea, stating that she has a sensation that she is going to throw up but has not had any vomiting. No fever, diarrhea, chills, chest pain, shortness of breath, or any other symptoms noted at this time. Pain reported to be a mild cramping at this time, does not report taking any medications. No temporal pattern reported with the pain. No hematochezia or hematemesis. MD elicited complaint: abdominal pain Onset (ago): day(s) Pain Consistency: intermittent Location: Epigastric, LUQ and RUQ Severity: moderate Quality: cramping Exacerbating factors: eating and other (Sitting up) Associated Symptoms: Reports nausea; Denies bloating, change in stool character, chills, constipation, diarrhea, dysuria, fever(s), hematochezia and vomiting Related Data Previous Rx's ?Medication ?Instructions ?Recorded aspirin 81 mg tablet,delayed 81 mg PO DAILY #10 tabs 01/01/20 release (Adult Aspirin Regimen) metoprolol tartrate 100 mg tablet See Rx Instructions .Route 11/06/23 .COMPLEX #90 tabs levothyroxine 125 mcg tablet See Rx Instructions .Route 10/21/24 .COMPLEX #90 tabs hydrocodone 7.5 mg-acetaminophen 1 tab PO Q8H PRN pain #15 tabs 11/08/24 325 mg tablet ondansetron 4 mg disintegrating 4 mg PO TID PRN nausea and 11/08/24 tablet vomiting #30 tabs Allergies Allergy/AdvReac Type Severity Reaction Status Date / Time Penicillins Allergy swelling Verified 11/06/23 09:46 Review of Systems General: Reports: 10 or more systems reviewed and unremarkable except in HPI and below Const: Denies: fever(s), chills, change in appetite, change in weight or diaphoresis ENMT: Denies: throat pain or hoarseness Card: Denies: chest pain, palpitations or lightheadedness Resp: Denies: dyspnea, productive cough or wheezing GI: Reports: abdominal pain and nausea; Denies: vomiting, diarrhea, constipation, bloating, change in stool character or hematochezia : Denies: flank pain, difficulty voiding, dysuria, urinary frequency or urinary urgency Musc: Denies: neck pain or back pain Skin/Breast: Denies: rash or new lesions Neuro: Denies: headache(s) or dizziness PFS ED PFSH: Medical History Hypothalamic hypothyroidism Hypertension Social History Smoking and tobacco/nicotine status: never used tobacco/nicotine Alcohol intake: never Substance/Drug Use: never Physical Exam Const: COMMON NORMALS: no acute distress, patient oriented x3, no limitations, alert and well nourished GENERAL APPEARANCE: cooperative and comfortable NUTRITIONAL APPEARANCE: obese morbidly obese ORIENTATION/CONSCIOUSNESS: Yes awake Neck/C-Spine: COMMON NORMALS: full ROM, supple, no meningeal signs and no JVD Resp: COMMON NORMALS: normal respiratory effort, No retractions, No use of accessory muscles and clear to auscultation bilaterally AUSCULTATION: clear to auscultation bilaterally, no crackles, no rales, no rhonchi and no wheezes Cardio: COMMON NORMALS: no JVD, regular rate, regular rhythm, S1 normal heart sound present, S2 normal heart sound present, No gallops present (Cardio), No clicks present (Cardio), No murmurs present (Cardio), No rub (Cardio) and Peripheral pulses 2+ throughout RATE: regular rate RHYTHM: regular rhythm HEART SOUNDS: S1 normal heart sound present and S2 normal heart sound present PERIPHERAL PULSES: Peripheral pulses 2+ throughout GI: COMMON NORMALS: Soft to palpation, non-tender, No hepatosplenomegaly present and no masses INSPECTION: Yes central obesity AUSCULTATION: Yes normoactive bowel sounds PALPATION: Yes Soft to palpation, No Guarding due to palpation present (GI), No Rigid due to palpation and Yes No hepatosplenomegaly present RECTAL EXAM: deferred : COMMON NORMALS: Yes no CVA tenderness BLADDER/KIDNEY EXAM: Yes no CVA tenderness Back/Pelvis: COMMON NORMALS: no CVA tenderness Extremity: COMMON NORMALS: normal to inspection and full ROM Neuro: COMMON NORMALS: patient oriented x3, moves all extremities, no focal motor deficits and no sensory deficits noted SENSORIUM/ORIENTATION: Yes alert MENINGEAL SIGNS: Yes no meningeal signs Psych: COMMON NORMALS: mental status grossly normal, cooperative and speech normal SPEECH: Yes normal speech Skin: COMMON NORMALS: no rashes or lesions noted GENERAL SKIN EXAM: no rashes or lesions noted Course Vital Signs: Vital signs: Vital Signs Temperature 98.3 F 11/08/24 15:13 Pulse Rate 93 11/08/24 20:02 Respiratory Rate 16 11/08/24 20:02 Blood Pressure 150/68 11/08/24 20:02 Pulse Oximetry 94 11/08/24 20:02 Oxygen Delivery Me thod Room Air 11/08/24 18:19 MDM - Abdominal Pain Medical Decision Making This patient presented with upper abdominal pain, mostly epigastric for the past 4 to 5 days. Exam overall unremarkable, morbidly obese female who is nontoxic-appearing. Her vitals have remained stable. Lipase mildly elevated to 272, she denied personal history of pancreatitis or gallbladder issues. Rest of her labs are normal to include normal bilirubin and LFTs. CT abdomen and pelvis shows signs of pancreatitis, and other findings that are relayed to the patient. She has been essentially asymptomatic only reporting mild pain here in the ED and I feel that this is stable for discharge home with symptom control and appropriate diet for her diagnosis of acute pancreatitis of unknown underlying etiology. I do suspect some sort of biliary obstruction, but not significant enough for immediate GI evaluation. However she will be told to follow-up with primary care early next week for reevaluation and strict return precautions given for the emergency department. She does agree with this plan. Lab Data 11/08/24 16:29 11/08/24 16:29 Labs/Radiology: Radiology Impressions Abdomen/Pelvis CT 11/08/24 18:06 IMPRESSION: 1. Inflammatory stranding adjacent to the pancreatic tail and distal pancreatic body region is noted, suggesting mild pancreatitis. No evidence of pancreatic pseudocyst or phlegmon. No pancreatic mass or pancreatic ductal distension. Multiple borderline enlarged lymph nodes adjacent to the pancreatic head and uncinate process, may represent reactive lymphadenopathy. No biliary tree distension. 2. Superior right lobe of the liver posterolaterally adjacent to the capsule, there is 2.3 cm region of subtle hypo enhancement seen on image number 12/3. Follow-up outpatient MRI study of the liver without and with contrast enhancement is recommended to evaluate for possible underlying pathology or tumor. 3. No urinary tract obstruction or calculus. No evidence of small bowel obstruction. Small fat containing umbilical hernia. Colonic diverticulosis without diverticulitis. No adnexal mass or urinary tract obstruction or calculus. 4. Normal appendix. Multiple borderline enlarged right lower quadrant mesenteric lymph nodes with unclear clinical significance. Degenerative changes of the thoracic and lumbar spine. Laboratory Results WBC 11.96 10^3/uL (3.29-11.43) H 11/08/24 16:29 RBC 5.38 10^6/uL (3.85-5.65) 11/08/24 16:29 Hgb 13.90 g/dL (11.27-16.99) 11/08/24 16:29 Hct 42.7 % (36-47) 11/08/24 16:29 MCV 79.4 fl (85-98) L 11/08/24 16:29 MCH 25.8 pg (27-33) L 11/08/24 16:29 MCHC 32.6 g/dL (30-55) 11/08/24 16:29 RDW 13.8 % (12.1-15.1) 11/08/24 16:29 Plt Count 322 10^3/cmm (157-399) 11/08/24 16:29 MPV 10.0 fL (7.4-10.4) 11/08/24 16:29 Neut % (Auto) 70.2 % 11/08/24 16:29 Lymph % (Auto) 13.7 % 11/08/24 16:29 [place] % (Auto) 14.0 % 11/08/24 16:29 Eos % (Auto) 1.5 % 11/08/24 16:29 Baso % (Auto) 0.3 % 11/08/24 16:29 Neut # (Auto) 8.40 10^3/uL (1.8-7.7) H 11/08/24 16:29 Lymph # (Auto) 1.6 10^3/uL (0.8-4.8) 11/08/24 16:29 [place] # (Auto) 1.7 10^3/uL (0.2-0.9) H 11/08/24 16:29 Eos # (Auto) 0.2 10^3/uL (0.0-0.8) 11/08/24 16:29 Baso # (Auto) 0.0 10^3/uL (0.0-0.1) 11/08/24 16:29 Nucleated RBC % (auto) 0 % 11/08/24 16: Nucleated RBCs # 0.0 /100WBC 11/08/24 16:29 Sodium 136 mmol/L (136-145) 11/08/24 16: Potassium 3.1 mmol/L (3.5-5.1) L 11/08/24 16: Chloride 96 mmol/L (98-107) L 11/08/24 16: Carbon Dioxide 27 mmol/L (22-29) 11/08/24 16: Anion Gap 16.1 (5-19) 11/08/24 16:29 BUN 15 mg/dL (8-23) 11/08/24 16:29 Creatinine 0.7 mg/dL (0.5-0.9) 11/08/24 16:29 GFR Calculation 83.2 mL/min (90-130) L 11/08/24 16:29 Glucose 106 mg/dL (65-115) 11/08/24 16:29 Calculated Osmolality 283 mOsm/kg (285-295) L 11/08/24 16:29 Calcium 9.6 mg/dL (8.5-10.5) 11/08/24 16:29 Total Bilirubin 0.6 mg/dL (0.15-1.2) 11/08/24 16:29 AST 12 U/L (0-32) 11/08/24 16:29 ALT 9 U/L (0-33) 11/08/24 16:29 Alkaline Phosphatase 114 U/L (35-105) H 11/08/24 16:29 Total Protein 8.5 g/dL (6.6-8.7) 11/08/24 16: Albumin 4.1 g/dL (3.5-5.2) 11/08/24 16: Globulin 4.4 g/dL (1.3-4.6) 11/08/24 16:29 Lipase 272 U/L (13-60) H 11/08/24 16:29 Urine Color Yellow (Yellow) 11/08/24 16:40 Urine Appearance Clear (CLEAR) 11/08/24 16:40 Urine pH 6.5 (5-7) 11/08/24 16:40 Ur Specific [place] 1.024 (1.005-1.030) 11/08/24 16:40 Urine Protein 2+ (Negative) A 11/08/24 16:40 Urine Glucose (UA) Negative (Normal) 11/08/24 16:40 Urine Ketones 1+ (Negative) H 11/08/24 16:40 Urine Blood Negative (Negative) 11/08/24 16:40 Urine Nitrate Negative (Negative) 11/08/24 16:40 Urine Bilirubin Negative (Negative) 11/08/24 16:40 Urine Urobilinogen 1.0 mg/dL (Negative) 11/08/24 16:40 Ur Leukocyte Esterase 1+ (Negative) A 11/08/24 16:40 Urine RBC 3-5 /hpf (0-2) 11/08/24 16:40 Urine WBC 6-10 /hpf (0-5) 11/08/24 16:40 Ur Squamous Epith Cells 6-10 /hpf (0-5) 11/08/24 16:40 Amorphous Sediment Not Reportable 11/08/24 16:40 Urine Bacteria 1+ /hpf (NONE) H 11/08/24 16:40 Hyaline Casts 3.30 /lpf 11/08/24 16:40 All radiology interpretation(s) finalized by discharge Discharge Plan Discharge Patient Disposition: Home Clinical Impression: Pancreatitis Qualifiers: Chronicity: acute Pancreatitis type: unspecified pancreatitis type Acute pancreatitis complication: uninfected necrosis Qualified Code(s): K85.91 - Acute pancreatitis with uninfected necrosis, unspecified Condition: Stable Prescriptions: New hydrocodone-acetaminophen 7.5-325 mg tablet 1 tab PO Q8H PRN (Reason: pain) Qty: 15 0RF ondansetron 4 mg tablet,disintegrating 4 mg PO TID PRN (Reason: nausea and vomiting) Qty: 30 0RF No Action metoprolol tartrate 100 mg tablet See Rx Instructions .ROUTE .COMPLEX Qty: 90 3RF Dose Instruction: Take 1 tablet by mouth once daily Rx Instructions: Take 1 tablet by mouth once daily levothyroxine 125 mcg tablet See Rx Instructions .ROUTE .COMPLEX Qty: 90 0RF Dose Instruction: Take 1 tablet by mouth once daily Rx Instructions: Take 1 tablet by mouth once daily Adult Aspirin Regimen 81 mg tablet,delayed release (DR/EC) 81 mg PO DAILY Qty: 10 0RF Rx Instructions: 1 PO daily for 10 days Discharge Orders: Discharge ED (Routine); Ordered 11/08/24 Ordered By: Neil Crane Referrals: Breonna Mcdonald MD [Primary Care Provider, [facility]] Patient Instructions: Opioid Safety, Pain Management, Patient Portal & Donald Instructions Activity Restrictions/Additional Instructions: Acute Pancreatitis Discharge Diagnosis: 69-year-old female with mild acute pancreatitis confirmed by CT and elevated lipase. Discharge Status: Hemodynamically stable, tolerating oral intake, no evidence of organ failure or local complications. --- Dietary Recommendations: - Initiate a low-fat, soft or solid diet as tolerated. There is no need to advance slowly from clear liquids; early oral feeding is safe and beneficial in mild acute pancreatitis, provided there is no significant nausea, vomiting, or ileus.[1]https://doi.org/10.38225/ajg.4481662603415870[2]https://doi.org/10.1053/j.gastro.2018.01.032[3]https://www.nejm.org/doi/full/10.1056/LQYZcx4419194 - Avoid high-fat foods, fried foods, and heavy meals. Encourage small, frequent meals. - Maintain adequate hydration. Medications: - Hydrocodone: Prescribed for pain control. Use the lowest effective dose for the shortest duration necessary. Monitor for constipation and sedation. - Ondansetron (Zofran): Prescribed for nausea. Use as needed, not exceeding recommended daily limits. Activity: - Resume normal activities as tolerated. Avoid alcohol and tobacco, as these may exacerbate pancreatic inflammation.[2]https://doi.org/10.1053/j.gastro.2018.01.032 Follow-Up: - Schedule follow-up with primary care provider in one week for clinical reassessment and laboratory monitoring as indicated. Return Precautions: Patient should seek immediate medical attention for any of the following: - Persistent or worsening abdominal pain unresponsive to prescribed analgesics - Recurrent or severe vomiting, inability to tolerate oral intake - Signs of dehydration (e.g., dizziness, decreased urine output) - Fever >38?C (100.4?F), chills, or new onset jaundice - Shortness of breath, chest pain, or confusion Additional Considerations: - If the etiology is biliary, outpatient evaluation for cholecystectomy should be considered to prevent recurrence.[1]https://doi.org/10.14151/ajg.8016208840447464[4]https://pubmed.ncbi.nlm.nih.gov/67986151 - If hypertriglyceridemia or alcohol is implicated, address underlying risk factors at follow-up.[5]https://pubmed.ncbi.nlm.nih.gov/99110150 Patient Education: - Reinforce the importance of medication adherence and dietary modifications. - Advise against NSAID use unless specifically recommended, due to potential gastrointestinal side effects.[6]https://pubmed.ncbi.nlm.nih.gov/07061505 - No routine antibiotics are indicated unless there is evidence of infection.[2]https://doi.org/10.1053/j.gastro.2018.01.032[7]https://pubmed.ncbi.nlm.nih.gov/62939338 Summary: This discharge plan is consistent with current guidelines from the [place] [employer] [employer] and the [place] [employer], which recommend early oral feeding, multimodal symptom management, and close outpatient follow-up for mild acute pancreatitis.[1]https://doi.org/10.84728/ajg.9951671350278488[2]https://doi.org/10.1053/j.gastro.2018.01.032[3]https://www.nejm.org/doi/full/10.1056/RTLXvq2300252 References [place] [employer] Guidelines: Management of Acute Pancreatitishttps://doi.org/10.53461/ajg.1954461243570166. Tesfaye S, Maria A SS, Mariela SG, et al. The [place] Journal of Gastroenterology. 2023;119(3):419-437. doi:10.42660/ajg.7772215420848856. [place] [employer] [place] Guideline On?Initial Management of Acute Pancreatitishttps://doi.org/10.1053/j.gastro.2018.01.032. Brigid SD, Candido S, Ronquillo TB, Joshk-David Y, Barkun AN. Gastroenterology. 2018;154(4):0912-0279. doi:10.1053/j.gastro.2018.01.032. Acute Pancreatitishttps://www.nejm.org/doi/full/10.1056/JOWCaq0757575. [place]mark CE, Vefrancine SS, Chris CM. The [place] Journal of Medicine. 2016;375(20):0919-8214. doi:10.1056/EDLOmt6135077. Acute Pancreatitis: Rapid Evidence Reviewhttps://pubmed.ncbi.nlm.nih.gov/52419468. Manuel KE, Reagan C, Franci K. [place]. 2021;106(1):44-50. Recent Treatment Strategies for Acute Pancreatitishttps://pubmed.ncbi.nlm.nih.gov/68604861. Suhas Y, David SH. Journal of Clinical Medicine. 2023;13(4):978. doi:10.3390/iay46866045. Update on the Management of Acute Pancreatitishttps://pubmed.ncbi.nlm.nih.gov/06217190. van den Hernandez FF, Howard MA. Current Opinion in Critical Care. 2022;29(2):145-151. doi:10.1097/SNF.4476471163674174. Towards Evidence-Based and Personalised Care of Acute Pancreatitishttps://pubmed.ncbi.nlm.nih.gov/25107435. Garc?a-Nicole Diego C?oscar-Sarabjit?n K, de-Thomasaria E. [employer] Journal. 2020;8(4):403-409. doi:10.1177/3139052462955145. Print Language: Upper Sorbian Coding Level of Care Code ED Operations Controller for Roderick San
[2024-11-08 19:11] VITALS: BP 142/79; PULSE 72; RESP 16; O2SAT 94
[2024-11-08 20:02] VITALS: BP 150/68; PULSE 93; RESP 16; O2SAT 94
--- NOTE | 2024-11-08 20:16 | PC.NURSE ---
1 hydrocodone and 1 zofran sent home for tonight as needed
== END 2024-11-08 20:16 | disposition home or self-care (01) ==
PROVIDERS: Emergency Medicine; Emergency Provider Physician Assistant; PCP Family Medicine
DX: K85.91 Acute pancreatitis with uninfected necrosis, unspecified (principal); I10 Essential (primary) hypertension; E03.8 Other specified hypothyroidism
CPT/HCPCS: 36415; 74177; 80053; 81001; 83690; 85025; 99285

== ENCOUNTER → 2024-12-01 12:52 | Outpatient (BNVA) | payer MEDICARE, SELFPAY | PROVIDERS: PCP Family Medicine; Visit Provider Family Medicine | DX: I10 Essential (primary) hypertension (principal); E03.8 Other specified hypothyroidism; K85.90 Acute pancreatitis without necrosis or infection, unspecified | CPT/HCPCS: 80053; 83690; 84443; 85025 ==